=== PATIENT | female | born 1955 | race Caucasian/White ===

== ENCOUNTER 2018-02-27 16:54 | Emergency (ER) | payer SELFPAY ==
--- NOTE | 2018-02-27 17:45 | EDPHYS ---
Physician Documentation [facility] Name: Sherly Sawyer Age: 62 yrs Sex: Female : 1955 Arrival Date: 02/27/2018 Time: 17:20 Bed 14 Private MD: None, None ED Physician Ac Norman HPI: 02/27 17:58 This 62 yrs old Female presents to ER via Ambulatory with complaints of snw Laceration To Foot. 17:58 The patient has a laceration related to: moving propane tank and it fell over and snw struck left dorsal foot, + laceration with lots of bleeding. The laceration(s) is(are) located on the left foot. Onset: The symptoms/episode began/occurred suddenly, just prior to arrival. Associated signs and symptoms: Pertinent positives: heavy bleeding. The patient has not experienced similar symptoms in the past. The patient has not recently seen a physician. Historical: - Allergies: 17:27 PENICILLINS; rb1 - Home Meds: 17:25 lisinopril Oral [Active]; ph - PMHx: 17:25 Hypertension; ph - PSHx: 17:25 ; Hysterectomy; ph - Immunization history:: Last tetanus immunization: > 10 years ago. - Social history:: Smoking status: Patient/guardian denies using tobacco. ROS: 17:57 Constitutional: Negative for fever, chills, and weight loss, Eyes: Negative for injury, snw pain, redness, and discharge, ENT: Negative for injury, pain, and discharge, Neck: Negative for injury, pain, and swelling, Cardiovascular: Negative for chest pain, palpitations, and edema, Respiratory: Negative for shortness of breath, cough, wheezing, and pleuritic chest pain, Abdomen/GI: Negative for abdominal pain, nausea, vomiting, diarrhea, and constipation, Back: Negative for injury and pain, : Negative for injury, bleeding, discharge, and swelling, MS/Extremity: Negative for injury and deformity, Neuro: Negative for headache, weakness, numbness, tingling, and seizure, Psych: Negative for depression, anxiety, suicide ideation, homicidal ideation, and hallucinations. 17:57 Skin: Positive for laceration(s), of the dorsum of left foot. Exam: 17:54 Constitutional: This is a well developed, well nourished patient who is awake, alert, snw and in no acute distress. Head/Face: Normocephalic, atraumatic. Eyes: Pupils equal round and reactive to light, extra-ocular motions intact. Lids and lashes normal. Conjunctiva and sclera are non-icteric and not injected. Cornea within normal limits. Periorbital areas with no swelling, redness, or edema. ENT: Nares patent. No nasal discharge, no septal abnormalities noted. Tympanic membranes are normal and external auditory canals are clear. Oropharynx with no redness, swelling, or masses, exudates, or evidence of obstruction, uvula midline. Mucous membranes moist. Neck: Trachea midline, no thyromegaly or masses palpated, and no cervical lymphadenopathy. Supple, full range of motion without nuchal rigidity, or vertebral point tenderness. No Meningismus. Chest/axilla: Normal chest wall appearance and motion. Nontender with no deformity. No lesions are appreciated. Cardiovascular: Regular rate and rhythm with a normal S1 and S2. No gallops, murmurs, or rubs. Normal PMI, no JVD. No pulse deficits. Respiratory: Lungs have equal breath sounds bilaterally, clear to auscultation and percussion. No rales, rhonchi or wheezes noted. No increased work of breathing, no retractions or nasal flaring. Abdomen/GI: Soft, non-tender, with normal bowel sounds. No distension or tympany. No guarding or rebound. No evidence of tenderness throughout. Back: No spinal tenderness. No costovertebral tenderness. Full range of motion. MS/ Extremity: Pulses equal, no cyanosis. Neurovascular intact. Full, normal range of motion. Neuro: Awake and alert, GCS 15, oriented to person, place, time, and situation. Cranial nerves II-XII grossly intact. Motor strength 5/5 in all extremities. Sensory grossly intact. Cerebellar exam normal. Normal gait. Psych: Awake, alert, with orientation to person, place and time. Behavior, mood, and affect are within normal limits. 17:54 Skin: Appearance: normal except for affected area, Color: normal in color, injury, laceration(s), the wound is approximately 1 cm(s), with a depth of .5 cm(s), of the dorsum of left foot. Vital Signs: 17:25 BP 126 / 87; Pulse 86; Resp 18; Temp 98.8; Pulse Ox 97% on R/A; Weight 77.11 kg; Height ph 5 ft. 5 in. (165.10 cm); Pain 0/10; 18:12 BP 128 / 83; Pulse 79; Resp 17; Pulse Ox 100% on R/A; rb1 17:25 Body Mass Index 28.29 (77.11 kg, 165.10 cm) ph MDM: 17:37 Patient medically screened. snw 17:55 Data reviewed: vital signs, nurses notes. Data interpreted: Pulse oximetry: on room air snw is 97 %. Interpretation: acceptable. Counseling: I had a detailed discussion with the patient and/or guardian regarding: the historical points, exam findings, and any diagnostic results supporting the discharge/admit diagnosis, the presence of at least one elevated blood pressure reading (>120/80) during this emergency department visit, the need for outpatient follow up, to return to the emergency department if symptoms worsen or persist or if there are any questions or concerns that arise at home. Special discussion: I have referred the patient to see his PCP for further evaluation of high blood pressure. Based on the history and exam findings, there is no indication for further emergent testing or inpatient evaluation. I discussed with the patient/guardian the need to see the primary care provider for further evaluation of the symptoms. 02/27 17:42 Order name: Wound Care: betadine; Complete Time: 18:01 snw 02/27 17:42 Order name: Dermabond; Complete Time: 18:00 snw 02/27 17:42 Order name: Post-op Orthopedic Shoe; Complete Time: 18:21 snw 02/27 17:42 Order name: Wound dressing: feng wrap joint; Complete Time: 18:21 snw Administered Medications: 17:55 Drug: Tetanus-Diphtheria Toxoid Adult 0.5 ml {[employer]ater: [place]. Exp: rb1 05/17/2020. Lot #: [id number]. } Route: IM; Site: right deltoid; 18:20 Follow up: Response: No adverse reaction rb1 Disposition: 19:06 Co-signature as Attending Physician, Ac Norman MD. rn Disposition: 02/27/18 17:44 Discharged to Home. Impression: Laceration without foreign body of foot. - Condition is Stable. - Discharge Instructions: Cast or Splint Care, Tissue Adhesive Wound Care, Laceration Care, Adult, VIS, Tetanus, Diphtheria (Td) - CDC. - Prescriptions for Doxycycline Hyclate 100 mg Oral Tablet - take 1 tablet by ORAL route every 12 hours; 20 tablet. Diclofenac Sodium 75 mg Oral Tablet Sustained Release - take 1 tablet by ORAL route 2 times per day; 30 tablet. - Medication Reconciliation Form, Thank You Letter, Antibiotic Education, Prescription Opioid Use form. - Follow up: Private Physician; When: 1 week; Reason: Recheck today's complaints, Continuance of care, Re-evaluation by your physician. Follow up: Emergency Department; When: As needed; Reason: Worsening of condition. Signatures: Radha Ndiaye, SCANNING MANAGER-C SCANNING MANAGER-Csnw Ac Norman MD MD rn Melba Lockhart RN RN Venessa Painting RN RN rb1 Corrections: (The following items were deleted from the chart) 17:27 17:25 Allergies: No Known Allergies; rb1 18:36 17:44 02/27/2018 17:44 Discharged to Home. Impression: Laceration without foreign body rb1 of foot. Condition is Stable. Forms are Medication Reconciliation Form, Thank You Letter, Antibiotic Education, Prescription Opioid Use. Follow up: Private Physician; When: 1 week; Reason: Recheck today's complaints, Continuance of care, Re-evaluation by your physician. Follow up: Emergency Department; When: As needed; Reason: Worsening of condition. snw
--- NOTE | 2018-02-27 17:45 | ER ---
Nurse's Notes [facility] Name: Sherly Sawyer Age: 62 yrs Sex: Female : 1955 Arrival Date: 02/27/2018 Time: 17:20 Bed 14 Private MD: None, None Diagnosis: Laceration without foreign body of foot Presentation: 02/27 17:23 Presenting complaint: Patient states: " I cut the top of my foot on a propane tank and ph it's not a big cut but every time I move my foot it starts bleeding." Small laceration noted to top of L foot, no bleeding at this time. Transition of care: patient was not received from another setting of care. Complicating Factors: There are no complicating factors for this patient. Onset of symptoms was February 27, 2018. Initial Sepsis Screen: Does the patient meet any 2 criteria? No. Patient's initial sepsis screen is negative. Does the patient have a suspected source of infection? No. Patient's initial sepsis screen is negative. Care prior to arrival: None. 17:23 Method Of Arrival: Ambulatory ph 17:23 Acuity: KEISHA 4 ph Historical: - Allergies: 17:27 PENICILLINS; rb1 - Home Meds: 17:25 lisinopril Oral [Active]; ph - PMHx: 17:25 Hypertension; ph - PSHx: 17:25 ; Hysterectomy; ph - Immunization history:: Last tetanus immunization: > 10 years ago. - Social history:: Smoking status: Patient/guardian denies using tobacco. Screenin:30 Abuse screen: Denies threats or abuse. Nutritional screening: No deficits noted. rb1 Tuberculosis screening: No symptoms or risk factors identified. Fall Risk None identified. Assessment: 17:30 General: Appears in no apparent distress. comfortable, Behavior is calm, cooperative. rb1 Pain: Complains of pain in dorsum of right foot Pain currently is 3 out of 10 on a pain scale. Neuro: Level of Consciousness is awake, alert, obeys commands, Oriented to person, place, time, situation. Cardiovascular: Capillary refill < 3 seconds is brisk in bilateral fingers. Cardiovascular: Pulses are palpable in right dorsalis pedis artery. Respiratory: Airway is patent Respiratory effort is even, unlabored, Respiratory pattern is regular, symmetrical. GI: No signs and/or symptoms were reported involving the gastrointestinal system. : No signs and/or symptoms were reported regarding the genitourinary system. Derm: Skin is pink, warm \\T\\ dry. Musculoskeletal: Range of motion: intact in all extremities. Injury Description: Laceration sustained to dorsum of right foot is contaminated, not bleeding. 18:12 Reassessment: Patient appears in no apparent distress at this time. Patient and/or rb1 family updated on plan of care and expected duration. Pain level reassessed. Patient is alert, oriented x 3, equal unlabored respirations, skin warm/dry/pink. Vital Signs: 17:25 BP 126 / 87; Pulse 86; Resp 18; Temp 98.8; Pulse Ox 97% on R/A; Weight 77.11 kg; Height ph 5 ft. 5 in. (165.10 cm); Pain 0/10; 18:12 BP 128 / 83; Pulse 79; Resp 17; Pulse Ox 100% on R/A; rb1 17:25 Body Mass Index 28.29 (77.11 kg, 165.10 cm) ph ED Course: 17:20 Patient arrived in ED. mr 17:21 None, None is Private Physician. mr 17:24 Triage completed. ph 17:25 Arm band placed on. ph 17:27 Venessa Painting, RN is Primary Nurse. rb1 17:30 Patient has correct armband on for positive identification. Bed in low position. Call rb1 light in reach. Side rails up X 1. Pulse ox on. NIBP on. 17:36 Radha Ndiaye FNP-C is PHCP. snw 17:36 Ac Norman MD is Attending Physician. snw 18:18 Dressings: non-adherent dressing x 1 right foot. Baldo wrap to dorsum of left foot Ortho dh3 shoe applied to right foot. 18:21 No provider procedures requiring assistance completed. Patient did not have IV access rb1 during this emergency room visit. Administered Medications: 17:55 Drug: Tetanus-Diphtheria Toxoid Adult 0.5 ml {[employer] Representative: Expert TA. Exp: rb1 05/17/2020. Lot #: [id number]. } Route: IM; Site: right deltoid; 18:20 Follow up: Response: No adverse reaction rb1 Outcome: 18:21 Discharged to home ambulatory, with family. rb1 18:21 Condition: stable 18:21 Discharge instructions given to patient, Instructed on discharge instructions, follow up and referral plans. medication usage, Demonstrated understanding of instructions, follow-up care, medications, Prescriptions given X 2. 18:21 Discharge ordered by . rb1 18:21 Patient left the ED. rb1 Signatures: Radha Ndiaye, BILINGUAL BRANCH MANAGER-C BILINGUAL BRANCH MANAGER-Csnw Tamra Melendez mr Melba Lockhart RN RN Venessa Painting RN RN [facility] Kelly Mcduffie 3 Corrections: (The following items were deleted from the chart) 17:27 17:25 Allergies: No Known Allergies; ph rb1 18:35 17:44 Discharge ordered by MD. darryl rb1 18:36 18:36 Patient left the ED. rb1 rb1
[2018-02-27] MEDS ORDERED: DERMABOND SKIN ADHESIVE TOP ONE (17:49)
[2018-02-27] MEDS ORDERED: TETANUS & DIPHTHERIA TOX,ADULT 0.5 ML VIAL ONE (17:49)
== END 2018-02-27 18:36 | disposition home or self-care (01) ==
LOC: ER 16:54
DX: S91.312A Laceration without foreign body, left foot, initial encounter (principal); W22.8XXA Striking against or struck by other objects, initial encounter; Y93.89 Activity, other specified; Y92.9 Unspecified place or not applicable; Z23 Encounter for immunization; Z88.0 Allergy status to penicillin; I10 Essential (primary) hypertension
CPT/HCPCS: 90714; 99284